=== PATIENT | female | born 1970 | race Caucasian/White ===

== ENCOUNTER → 2016-09-27 | Outpatient (CLI) | payer BC ==
--- NOTE | 2016-09-27 10:57 | REP ---
PA and lateral chest: Comparisons 05/31/2011. The lung mccormick are clear. The cardiac size is normal The adam, mediastinum, and bony thorax are unremarkable. Impression: Negative PA and lateral chest. There is no interval change. Half Signed by Ramon Gamez MD 09/27/2016 10:48 A
== END ==
LOC: M WUC 09:36
PROVIDERS: ATTEND Nurse Practitioner Family
DX: M54.9 Dorsalgia, unspecified (principal)

== ENCOUNTER → 2018-07-03 | Outpatient (REF) | payer BC ==
[2018-07-03 15:31] LABS: INFLUENZA B AMPLIFICATION NEGATIVE (NEGATIVE)
[2018-07-05 09:36] LABS: INFLUENZA A AMPLIFICATION POSITIVE (NEGATIVE)
== END ==
LOC: M LAB REF 14:19
PROVIDERS: ATTEND Physician Assistant Medical
DX: J11.1 Influenza due to unidentified influenza virus with other respiratory manifestations (principal)

== ENCOUNTER 2020-07-04 14:18 | Emergency (ER) | payer BC ==
[~2020-07-04] VITALS: Ht 172.7 cm; Wt 77.2 kg
[2020-07-04 14:19] VITALS: BP 163/92
--- OUTSIDE RECORDS SUMMARY | 2020-07-04 14:24 | CCD | Continuity of Care Document ---
Author Author Maria Del Carmen LINARES Organization Unknown Address [address] [facility] [address] [place] [address] Phone [phone] Care Team Providers Care Electric Relay Tester Name Role Phone Shabana Linares AUTM [phone] Problems Description No Information Available Social History Type Date Description Comments Sex Unknown ETOH Use Rarely consumes alcohol once mon thly Tobacco Use Start: Unknown End: Unknown Patient is a former smoker QUIT 5 YEARS AGO. SMOKED 1/2 PACK DAILY WHEN SMOKING. Quit 04/2011 Allergies, Adverse Reactions, Alerts Description No Known Drug Allergies Medications Active Medications SIG Qnty Indications Ordering Provide r Date Furosemide 20mg Tablets 1 by mouth every day 90tabs R60.9 Devon Sheikh MD 03/16/2020 Medications Administered in Office Medication SIG Qnty Indications Ordering Provider Date Immunization Adminstration,1 Vaccine/Tox oid Injection JOSE ALEJANDRO Borrero 0 Immunizations CPT Code Status Date Vaccine Lot # [id number] Given 03/16/2020 Influenza Vaccin e Quadrivalent Preser/Antibiotic Free Im Use [id number] Vital Signs Date Vital Result Comment 03/16/2020 1:02pm BP Systolic 112 mmHg RT Arm BP Diastolic 66 mmHg RT Arm Heart Rate 68 /min Height 67 inches 5'7" Weight 165.00 lb BMI (Body Mass Index) 25.8 kg/m2 02/15/2019 10:16am BP Systolic 104 mmHg BP Diastolic 70 mmHg Heart Rate 63 /min Height 67 inches 5'7" Weight 152.50 lb O2 % BldC Oximetry 99 % RM Air BMI (Body Mass Index) 23.9 kg/m2 Results Test Acquired Date Facility Test Result H/L Range Note Laboratory test finding 03/16/2020 [facility] Caster Helper: [place] [address] [phone] Vitamin D 25-Hydroxy 50.0 24.0 - 80.0 1 Basic Metabolic Panel 03/16/2020 [facility] Caster Helper: [place] [address] [phone] Glucose 85 mg/dL 74 - 99 2 BUN 14 mg/dL 7 - 18 Creatinine 0.7 mg/dL 0.6 - 1.3 Sodium 142 mEq/L 136 - 145 Potassium 4.2 mEq/L 3.5 - 5.1 Chloride 104 mEq/L 98 - 107 Carbon Dioxide 25 mEq/L 21 - 32 Calcium 8.7 mg/dL 8.5 - 10.1 GFR >= 60 mL/min >60 GFR >= 60 mL/min >60 3 Complete Blood Count 03/16/2020 [facility] Caster Helper: [place] [address] [phone] WBC 9.3 x10*3/UL 4.1 - 10.9 RBC 4.37 x10*6/UL 4.20 - 6.30 Hemoglobin 13.4 g/dL 12.0 - 18.0 Hematocrit 38.8 % 37.0 - 51.0 MCV 88.8 fL 80.0 - 97.0 MCH 30.6 pg 26.0 - 32.0 MCHC 34.5 g/dL 31.0 - 38.0 RDW 12.5 % 11.6 - 13.7 PLT 350 x10*3/UL 140 - 440 MPV 8.5 FL 7.8 - 11.0 Lymph % 31.7 % 10.0 - 58.5 Mid % 8.7 % 1.7 - 9.3 Neut % 59.6 % 37.0 - 92.0 Lymph # 2.9 x10*3/UL 0.6 - 4.1 Mid # 0.9 x10*3/UL High 0.1 - 0.6 Neut # 5.5 x10*3/UL 2.0 - 7.8 1 This test was performed usin gAuto Vitamin D immunoassay kit. Values obtained with different assay methods should not be used interchangeably. 2 100-125 mg/dL PRE-DIABET ES/FASTING >126 mg/dL DIABETES/FASTING 3 CHRONIC KIDNEY DISEASE STAGI NG PER NKF STAGE I & II GFR >= 60 NORMAL TO MILDLY DECREASED STAGE III GFR 30-59 MODERATELY DECREASED STAGE IV GFR 15-29 SEVERELY DECREASED STAGE V GFR <15 VERY LITTLE GFR LEFT ESRD GFR <15 ON VINEYARD SUPERVISOR Procedures Description No Information Available Medical Devices Description No Information Available Encounters Type Date Location Provider Dx Diagnosis Office Visit 03/16/2020 1:00p [facility] HORACIO MichaelP Z00.00 Encntr for general adult medical exam w/ o abnormal findings E55.9 Vitamin D deficiency, unspec ified R60.9 Edema, unspecified E66.3 Overweight Z68.25 Body mass index (BMI) 25.0-2 5.9, adult Z23 Encounter for immunization Z13.89 Encounter for screening for other disorder Assessments Date Code Description Provider 03/16/2020 Z00.00 Encounter for genera l adult medical examination without abnormal findings HORACIO BorreroP 03/16/2020 E55.9 Vitamin D deficiency, unspecifie d Shabana Linares, SINGING WAITER OR WAITRESS 03/16/2020 R60.9 Edema, unspecified Shabana Linares , SINGING WAITER OR WAITRESS 03/16/2020 E66.3 Overweight Shabana Linares, F FORESTRY AID 03/16/2020 Z68.25 Body mass index (BMI) 25.0-25.9, adult Shabana Linares, SINGING WAITER OR WAITRESS 03/16/2020 Z23 Encounter for immunization Bacilio Linares, [facility] 03/16/2020 Z13.89 Encounter for screening for othe r disorder JOSE ALEJANDRO Borrero Plan of Treatment Future Appointment(s):* 03/17/2021 1:00 pm - JOSE ALEJANDRO Borrero at [facility] * 09/14/2020 8:10 am - Lab Schedule at [facility] 03/16/2020 - JOSE ALEJANDRO Borrero* Z00.00 Encounter for general adult medical examination without abnormal findings* Comments:* Healthy, f/u annually, sooner PRN. Sees DELIVERY SPECIALIST tomorrow. * E55.9 Vitamin D deficiency, unspecified* Comments:* D level is pending, not currently supplemented. * R60.9 Edema, unspecified* New Medication:* Furosemide 20 mg - 1 by mouth every day * Comments:* Intermittent but persistent. Check echo. CBC, BMP pending. RX Lasix 20 mg- may take 1/2- 1 tab PO daily PRN for edema. Discussed side effects, need for routine monitoring of BMP if she is taking this regularly. I have recommended increased fluid intake, elevation of BLE when able and compression stockings as well. * Referral:* [facility] * E66.3 Overweight* Comments:* Weight loss would be favorable- portion control, balanced diet and regular exercise are encouraged. * Z68.25 Body mass index (BMI) 25.0-25.9, adult * Z23 Encounter for immunization * Z13.89 Encounter for screening for other disorder * All * Comments:* Follow up in one year with repeat labs at that time.Encouraged balanced diet, 4-5 servings of fresh fruits and vegetables daily. Recommended at least 30 minutes of exercise daily and eight 8 oz. glasses of water daily.SBE monthly.Flu vaccination: given today.RTC PRN for acute illness.COVID precautions are discussed and social distancing/mask use/ frequent hand washing and sanitizing are encouraged. Functional Status Description No Information Available Mental Status Description No Information Available Referrals Refer to Reason for Referral Status Appt Date [facility] CARDIAC ECHO WITH DOPPLER DX : EDEMA NO PRIOR AUTH REQ PER JOANNE AT [facility] Patient Notified 04/21/[id number] [place], [place] [id number] [phone]
--- OUTSIDE RECORDS SUMMARY | 2020-07-04 14:25 | CCD ---
Author Author [facility] Organization [facility] Address Unknown Phone Unavailable Care Team Providers Care Python Programmer Name Role Phone Viri Menjivar MD Unavailable Unavailable Viri Menjivar MD Unavailable Unavailable Viri Menjivar MD Unavailable Unavailable Viri Menjivar MD Unavailable Unavailable Viri Menjivar MD Unavailable Unavailable Viri Menjivar MD Unavailable Unavailable Viri Menjivar MD Unavailable Unavailable Viri Menjivar MD Unavailable Unavailable Viri Menjivar MD Unavailable Unavailable Viri Menjivar MD Unavailable Unavailable Viri Menjivar MD Unavailable Unavailable Viri Menjivar MD Unavailable Unavailable Viri Menjivar MD Unavailable Unavailable Viri Menjivar MD Unavailable Unavailable Viri Menjivar MD Unavailable Unavailable Viri Menjivar MD Unavailable Unavailable Viri Menjivar MD Unavailable Unavailable Viri Menjivar MD Unavailable Unavailable Viri Menjivar MD Unavailable Unavailable Viri Menjivar MD Unavailable Unavailable Viri Menjivar MD Unavailable Unavailable Viri Menjivar MD Unavailable Unavailable Viri Menjivar MD Unavailable Unavailable Viri Menjivar MD Unavailable Unavailable Viri Menjivar MD Unavailable Unavailable Viri Menjivar MD Unavailable Unavailable Viri Menjivar MD Unavailable Unavailable Viri Menjivar MD Unavailable Unavailable Viri Menjivar MD Unavailable Unavailable SleMorenita calvillotech Unavailable Unavailable Viri Menjivar MD Unavailable Unavailable Morenita Menjivartech Unavailable Unavailable Viri Menjivar MD Unavailable Unavailable SleMorenita calvillotech Unavailable Unavailable SleOswaldo calvillojtech Unavailable Unavailable SleOswaldo calvillojtech Unavailable Unavailable SleMorenita calvillotech Unavailable Unavailable Oswaldo Menjivarjtech Unavailable Unavailable Oswaldo Menjivarjtech Unavailable Unavailable Oswaldo Menjivarjtech Unavailable Unavailable Oswaldo Menjivarjtech Unavailable Unavailable Oswaldo Menjivarjtech Unavailable Unavailable Oswaldo Menjivarjtech Unavailable Unavailable Morenita Menjivartech Unavailable Unavailable Morenita Menjivartech Unavailable Unavailable Oswaldo Menjivarjtech Unavailable Unavailable Oswaldo Menjivarjtech Unavailable Unavailable Oswaldo Menjivarjtech Unavailable Unavailable Morenita Menjivartech Unavailable Unavailable Morenita Menjivartech Unavailable Unavailable Viri Menjivar MD Unavailable Unavailable Morenita Menjivartech Unavailable Unavailable Morenita Menjivartech Unavailable Unavailable Oswaldo Menjivarjtech Unavailable Unavailable Viri Menjivar MD Unavailable Unavailable Viri Menjivar MD Unavailable Unavailable Viri Menjivar MD Unavailable Unavailable Vijay, Shabana GLOBAL CEO Unavailable Unavailable Vijay, Shabana GLOBAL CEO Unavailable Unavailable Vijay, Shabana GLOBAL CEO Unavailable Unavailable Vijay, Shabana GLOBAL CEO Unavailable Unavailable Vijay, Shabana GLOBAL CEO Unavailable Unavailable Vijay, Shabana GLOBAL CEO Unavailable Unavailable Vijay, Shabana GLOBAL CEO Unavailable Unavailable Vijay, Shabana GLOBAL CEO Unavailable Unavailable Vijay, Shabana GLOBAL CEO Unavailable Unavailable Vijay, Shabana GLOBAL CEO Unavailable Unavailable Vijay, Shabana GLOBAL CEO Unavailable Unavailable Vijay, Shabana GLOBAL CEO Unavailable Unavailable Vijay, Shabana GLOBAL CEO Unavailable Unavailable Vijay, Shabana GLOBAL CEO Unavailable Unavailable Vijay, Shabana GLOBAL CEO Unavailable Unavailable Vijay, Shabana GLOBAL CEO Unavailable Unavailable Vijay, Shabana GLOBAL CEO Unavailable Unavailable Vijay, Shabana GLOBAL CEO Unavailable Unavailable Vijay, Shabana GLOBAL CEO Unavailable Unavailable Vijay, Shabana GLOBAL CEO Unavailable Unavailable Vijay, Shabana GLOBAL CEO Unavailable Unavailable Vijay, Shabana GLOBAL CEO Unavailable Unavailable Vijay, Shabana GLOBAL CEO Unavailable Unavailable Vijay, Shabana GLOBAL CEO Unavailable Unavailable Vijay, Shabana GLOBAL CEO Unavailable Unavailable Vijay, Shabana GLOBAL CEO Unavailable Unavailable Hill, K Sharon MD Unavailable Unavailable Hill, K Sharon MD Unavailable Unavailable Hill, K Sharon MD Unavailable Unavailable Hill, K Sharon MD Unavailable Unavailable Hill, K Sharon MD Unavailable Unavailable Hill, K Sharon MD Unavailable Unavailable Hill, K Sharon MD Unavailable Unavailable Hill, K Sharon MD Unavailable Unavailable Hill, K Sharon MD Unavailable Unavailable Hill, K Sharon MD Unavailable Unavailable Hill, K Sharon MD Unavailable Unavailable Hill, K Sharon MD Unavailable Unavailable Hill, K Sharon MD Unavailable Unavailable Hill, K Sharon MD Unavailable Unavailable Hill, K Sharon MD Unavailable Unavailable Hill, K Sharon MD Unavailable Unavailable Hill, K Sharon MD Unavailable Unavailable Hill, K Sharon MD Unavailable Unavailable Hill, K Sharon MD Unavailable Unavailable Hill, K Sharon MD Unavailable Unavailable Hill, K Sharon MD Unavailable Unavailable Hill, K Sharon MD Unavailable Unavailable Hill, K Sharon MD Unavailable Unavailable Hill, K Sharon MD Unavailable Unavailable Hill, K Sharon MD Unavailable Unavailable Hill, K Sharon MD Unavailable Unavailable Hill, K Sharon MD Unavailable Unavailable Re-disclosure Warning The records that you are about to access may contain information from federally-assisted alcohol or drug abuse programs. If such information is present, then the following federally mandated warning applies: This information has been disclosed to you from records protected by federal confidentiality rules (42 CFR part 2). The federal rules prohibit you from making any further disclosure of this information unless further disclosure is expressly permitted by the written consent of the person to whom it pertains or as otherwise permitted by 42 CFR part 2. A general authorization for the release of medical or other information is NOT sufficient for this purpose. The Federal rules restrict any use of the information to criminally investigate or prosecute any alcohol or drug abuse patient.The records that you are about to access may contain highly sensitive health information, the redisclosure of which is protected by Article 27-F of the [facility] Public Health law. If you continue you may have access to information: Regarding HIV / AIDS; Provided by facilities licensed or operated by the [facility] Office of Mental Health; or Provided by the [facility] Office for People With Developmental Disabilities. If such information is present, then the following [facility] mandated warning applies: This information has been disclosed to you from confidential records which are protected by state law. State law prohibits you from making any further disclosure of this information without the specific written consent of the person to whom it pertains, or as otherwise permitted by law. Any unauthorized further disclosure in violation of state law may result in a fine or residential sentence or both. A general authorization for the release of medical or other information is NOT sufficient authorization for further disc losure. Family History Family Member Name Family Member Gender Family Member Status Date o f Status Description Data Source(s) Unknown Unknown Problem [facility] ([facility]) Unknown Male Problem [facility] ([facility] ) Encounters Encounter Providers Location Date Indications Data Source(s ) Outpatient [facility] 04/22/2020 05:46:19 PM [facility] Outpatient Referrer: Viri AGUIRRE 08/2019 12:00:00 AM EST [facility] Recurring Patient Referrer: Sharon Hilario MD 03/17/2020 04:07: 54 PM EDT [facility] Outpatient Attender: Shabana Griffin 01:00:00 PM EDT [facility] ([facility] ) [facility] [address] [place] [phone] 02/03/2020 12:00:00 AM EDT eCW1 ([facility]) Immunizations Vaccine Date Status Description Data Source(s) Influenza, injectable, MDCK, preservative free, daniel valent 03/16/2020 01:05:00 PM EDT completed [facility] ([facility]) FLU VACCINE QUADRIV [id number](4 YEARS AND OLDER)CELL D ERIVED 07/25/2019 12:00:00 AM EST completed [facility] Medications Medication Brand Name Start Date Product Form Dose Route Admi nistrative Instructions Pharmacy Instructions Status Indications Reaction Description Data Source(s) 20 mg 03/17/2020 12:00:00 AM EDT tablet 90 TAKE ONE TABLET BY MOUTH EVERY DAY TAKE ONE TABLET BY MOUTH EVERY DAY SOLD: 03/30/2020 [facility] Furosemide 20 MG Oral Tablet Furosemide 03/16/2020 12:00:00 AM EDT ORAL active [facility] ([facility]) Immunization Adminstration,1 Vaccine/Toxoid 03/16/2020 12:00 :00 AM EDT completed [facility] ([facility]) Medication administered onsite Insurance Providers Payer name Policy type / Coverage type Policy ID Covered alliance party ID Covered alliance party's relationship to rivas Policy Rivas Plan Information BCBS FEDERAL EMPLOYEE PROGRAM [id number] SP [id number] EXCELLUS BCBS [id number] Mira [id number] [id number] 18 [id number] Federal BC/BS Commercial [id number] Self [id number] BCBS FEDERAL EMPLOYEE PROGRAM [id number] SP [id number] [place] PC UNAVAILABLE 18 UNAVAILABLE BS Fed Plan Medigap Part B [id number] Self [id number] BS [place] Commercial [id number] Self [id number] BS Fed Plan Medigap Part B [id number] Self [id number] BS Fed Plan Medigap Part B [id number] Self [id number] BC BS [place] FEDERAL B [id number] S [id number] EXCELLUS BCBS FEDERAL [id number] SP [id number] BS Fed Plan Medigap Part B [id number] Self [id number] BLUE CROSS O [id number] S [id number] BLUE CROSS O [id number] S [id number] BC BS [place] WATN FEDERAL [id number] SP [id number] BLUE CROSS BLUE SHIELD-O/P [id number] 18 [id number] P UNAVAILABLE UNAVAILA BLE Results ID Date Data Source [id number] 04/22/2020 05:41:49 PM EST [facility] Name Value Range Interpretation Code Description Data Elly rce(s) Supporting Document(s) &PDF [facility] ORVQCg9iQcAFZfMx54/VZIsxOOXgj1MeBFdhGUv4HCouZSKvH0AsrUnnYC3KWNnBFUlOBNGYXSUNKK4z oRX [file] 6z+ZG6zGoHu3lungyiw6EsdGwgZ9+KNmMSCQuV 2KlLeGmEUPq+S2ZHAjJdhmyLYfMvTTKIFNB6vJBw39Rc5uqiNjifS04lZnawOHqq0l/XTl1p3rE5vJ8K iRN9/WKg7DG7x4d8Jbf2bznOPkZ7j53uJ/snLQytXNvTEUN1+oTAN/p0aE8JPM0ka526u9Zx6RPz+30f UrUVp3OnVLN9/wN625Y8GBnbCa6ICV5BGJbg7gyXkp XNz2cAwe9JaS+F0TImgTg/QmOdKann6+SsF2bMyTc47tYlM7rzp3x3GWt7bW1QUEY6jTY1/5sxaw0eW5 marisol+O57nNqw6fxle5/vDDDz/G277LoOkedTLKeA/oi0rl049Wna1pVBK63VCMjcmy2+bpmVv1aqz7PtT8 [file] [id number] ID Date Data Source [id number] 03/17/2020 04:06:23 PM EDT [facility] PROFESSIONAL INTERPRETATION PERFORMED BY :[facility]:PROFESSIONAL INTERPRETATION FOR: [facility]WAINE PATRICK M.D. P.C.EXAMINATION: BILATERAL SCREENING 2D-3D MAMMOGRAMIndication: ScreeningLast clinical breast exam: 03/17/20TECHNIQUE: Routine craniocaudal and mediolateral oblique views of each breast are obtained withdigital technique. Interpretation is aided by R2 CAD.BREAST CANCER RISK ASSESSMENT5 Year Risk (at current age): 0.9 %Lifetime Risk (to age 90):9.5 %FINDINGS:ACR density category: DComparison is made to prior studies. The breasts are composed of extremely dense fibroglandular elements, which limits the sensitivity of mammography. No dominant masses, worrisome clusters ofmicrocalcifications, or areas of architectural distortion are demonstrated. No significant changefrom the prior study.IMPRESSION1. Negative mammogram. The patient may continue routine annual screening mammography.2. This patient has dense breast tissue and must be informed. Bilateral breast ultrasound candetect mammographically occult cancers in this setting and can be arranged as clinically helpful.BI-RADS: 1 Negative Exam. Name Value Range Interpretation Code Description Data Elly rce(s) Supporting Document(s) ID Date Data Source [id number] 03/16/2020 12:53:00 PM EDT [facility] Name Value Range Interpretation Code Description Data Elly rce(s) Supporting Document(s) Calcidiol [Mass/volume] in Serum or Plasma 50.0 24.0-80.0 [facility] ([facility]) This test was performed using FastPack I P Vitamin D immunoassay kit. Values obtained with different assay methods should not be used interchangeably. ID Date Data Source [id number] 03/16/2020 12:52:00 PM EDT [facility] Name Value Range Interpretation Code Description Data Elly rce(s) Supporting Document(s) Leukocytes [#/volume] in Blood by Automated count 9.3 x10*3/UL 4.1-10 .9 [facility] ([facility]) Erythrocytes [#/volume] in Blood by Automated count 4.37 x10*6/UL 4.2 0-6.30 [facility] ([facility]) Hemoglobin [Mass/volume] in Blood 13.4 g/dL 12.0-18.0 [facility] ([facility]) MCV 88.8 fL 80.0-97.0 [facility] Hematocrit [Volume Fraction] of Blood by Automated count 38.8 % 3 7.0-51.0 [facility] ([facility]) MCH 30.6 pg 26.0-32.0 [facility] ([facility]) Erythrocyte distribution width [Ratio] by Automated count 12.5 % 11.6-13.7 [facility] ([facility]) MCHC 34.5 g/dL 31.0-38.0 [facility] Lymph % 31.7 % 10.0-58.5 [facility]) MPV 8.5 FL 7.8-11.0 [facility]) Platelets [#/volume] in Blood by Automated count 350 x10*3/UL 140-440 [facility] ([facility]) Lymph # 2.9 x10*3/UL 0.6-4.1 [facility] ([facility]) Mid # 0.9 x10*3/UL 0.1-0.6 [facility] ([facility]) Neut % 59.6 % 37.0-92.0 [facility] Mid % 8.7 % 1.7-9.3 [facility] Neut # 5.5 x10*3/UL 2.0-7.8 [facility] ([facility]) ID Date Data Source [id number] 03/16/2020 12:52:00 PM EDT [facility] ([facility]) Name Value Range Interpretation Code Description Data Elly rce(s) Supporting Document(s) Glucose [Mass/volume] in Serum or Plasma 85 mg/dL 74-99 [facility] ([facility]) 100-125 mg/dL PRE-DIABETES/FASTING >126 mg/dL DIABETES/FASTING Urea nitrogen [Mass/volume] in Serum or Plasma 14 mg/dL 7-18 [facility] ([facility]) Sodium [Moles/volume] in Serum or Plasma 142 meq/L 136-145 [facility] ([facility]) Creatinine 0.7 mg/dL 0.6-1.3 [facility] ([facility]) Potassium [Moles/volume] in Serum or Plasma 4.2 meq/L 3.5-5.1 [facility] ([facility]) Chloride [Moles/volume] in Serum or Plasma 104 meq/L 98-107 [facility] ([facility]) Carbon dioxide, total [Moles/volume] in Serum or Plasma 25 meq/L 21 -32 [facility] ([facility]) Glomerular filtration rate/1.73 sq M pre dicted among blacks [Volume Rate/Area] in Serum or Plasma by Creatinine-based formula (MDRD) Laboratory test result [facility] <content>CHRONIC KIDNEY DISEASE STAGING PER NKF</content>
<content></content>
<content>STAGE I & II GFR >= 60 NORMAL TO MILDLY DECREASED</content>
<content>STAGE III GFR 30-59 MODERATELY DECREASED</content>
<content>STAGE IV GFR 15-29 SEVERELY DECREASED</content>
<content>STAGE V GFR <15 VERY LITTLE GFR LEFT</content>
<content>ESRD GFR <15 ON BISCUIT MACHINE OPERATOR</content>
<content></content> Glomerular filtration rate/1.73 sq M pre dicted among non-blacks [Volume Rate/Area] in Serum or Plasma by Creatinine-based formula (MDRD) Laboratory test result [facility] ([facility] ) Calcium [Mass/volume] in Serum or Plasma 8.7 mg/dL 8.5-10.1 [facility] ([facility]) Procedure Vital Signs ID Date Data Source [id number] Name Value Range Interpretation Code Description Data Source(s) Body mass index (BMI) [Ratio] 25.8 kg/m2 25.8 k g/m2 [facility] ([facility]) Body weight 165.00 [lb_av] 165.00 [facility]_av] [facility] Body height 67 [in_i] 67 [in_i] [facility] ([facility]) 5'7" Heart rate 68 /min 68 /min [facility] ([facility]) Diastolic blood pressure 66 mm[Hg] 66 mm[Hg] [facility] ([facility]) RT Arm Systolic blood pressure 112 mm[Hg] 112 mm[Hg] M EDANDRA ([facility]) RT Arm
[2020-07-04] MEDS ORDERED: BOOSTRIX/ADACEL VACCINE (DIPHTH/PERTUSS/ACELL/TETANUS) 0.5ML SYR IM ONE (14:45)
[2020-07-04] MEDS ORDERED: AUGM875T28 PO (14:45)
--- OUTSIDE RECORDS SUMMARY | 2020-07-04 14:55 | CCD ---
Author Author [facility] Organization [facility] Address Unknown Phone Unavailable Care Team Providers Care Nursery Attendant Name Role Phone Viri Menjivar MD Unavailable [...] MD Unavailable Unavailable SleMorenita [employer] Unavailable Unavailable SleViri calvillo MD Unavailable Unavailable Morenita Menjivartech Unavailable Unavailable Morenita Menjivartech Unavailable Unavailable Viri Menjivar MD Unavailable Unavailable Morenita Menjivartech Unavailable Unavailable Viri Menjivar MD Unavailable Unavailable Oswaldo Menjivarjtech Unavailable Unavailable Oswaldo Menjivarjtech Unavailable Unavailable Morenita Menjivartech Unavailable Unavailable Viri Menjivar MD Unavailable Unavailable Viri Menjivar MD Unavailable Unavailable Viri Menjivar MD Unavailable Unavailable Oswaldo Menjivarjtech Unavailable Unavailable Oswaldo Menjivarjtech Unavailable Unavailable Viri Menjivar MD Unavailable Unavailable Viri Menjivar MD Unavailable Unavailable Viri Menjivar MD Unavailable Unavailable Viri Menjivar MD Unavailable Unavailable Viri Menjivar MD Unavailable Unavailable Morenita Menjivartech Unavailable Unavailable Viri Menjivar MD Unavailable Unavailable Viri Menjivar MD Unavailable Unavailable Viri Menjivar MD Unavailable Unavailable Viri Menjivar MD Unavailable Unavailable Viri Menjivar MD Unavailable Unavailable Vijay, Shabana SALES SUPPORT MANAGER Unavailable Unavailable Vijay, Shabana SALES SUPPORT MANAGER Unavailable Unavailable Vijay, Shabana SALES SUPPORT MANAGER Unavailable Unavailable Vijay, Shabana SALES SUPPORT MANAGER Unavailable Unavailable Vijay, Shabana SALES SUPPORT MANAGER Unavailable Unavailable Vijay, Shabana SALES SUPPORT MANAGER Unavailable Unavailable Vijay, Shabana SALES SUPPORT MANAGER Unavailable Unavailable Vijay, Shabana SALES SUPPORT MANAGER Unavailable Unavailable Vijay, Shabana SALES SUPPORT MANAGER Unavailable Unavailable Vijay, Shabana SALES SUPPORT MANAGER Unavailable Unavailable Vijay, Shabana SALES SUPPORT MANAGER Unavailable Unavailable Vijay, Shabana SALES SUPPORT MANAGER Unavailable Unavailable Vijay, Shabana SALES SUPPORT MANAGER Unavailable Unavailable Vijay, Shabana SALES SUPPORT MANAGER Unavailable Unavailable Vijay, Shabana SALES SUPPORT MANAGER Unavailable Unavailable Vijay, Shabana SALES SUPPORT MANAGER Unavailable Unavailable Vijay, Shabana SALES SUPPORT MANAGER Unavailable Unavailable Vijay, Shabana SALES SUPPORT MANAGER Unavailable Unavailable Vijay, Shabana SALES SUPPORT MANAGER Unavailable Unavailable Vijay, Shabana SALES SUPPORT MANAGER Unavailable Unavailable Vijay, Shabana SALES SUPPORT MANAGER Unavailable Unavailable Vijay, Shabana SALES SUPPORT MANAGER Unavailable Unavailable Vijay, Shabana SALES SUPPORT MANAGER Unavailable Unavailable Vijay, Shabana SALES SUPPORT MANAGER Unavailable Unavailable Vijay, Shabana SALES SUPPORT MANAGER Unavailable Unavailable Vijay, Shabana SALES SUPPORT MANAGER Unavailable Unavailable Hill, K Sharon MD Unavailable [...] is protected by Article 27-F of the [facility] Public Health law. If you continue you may have access to information: Regarding HIV / AIDS; Provided by facilities licensed or operated by the [facility] Office of Mental Health; or Provided by the [facility] Office for People With Developmental Disabilities. If such information is present, then the following [facility] mandated warning applies: This information [...] law may result in a fine or senior care sentence or both. A general authorization for the release of medical or other information is NOT sufficient authorization for further disc losure. Family History Family Member Name Family Member Gender Family Member Status Date o f Status Description Data Source(s) Unknown Unknown Problem [facility]) Unknown Male Problem [facility] ([facility] ) Encounters Encounter Providers Location Date Indications Data Source(s ) Outpatient LUIS [email or web address].KAMAR 04/22/2020 05:46:19 PM [facility] Outpatient Referrer: Viri AGUIRRE 08/2019 12:00:00 AM [facility] Recurring Patient Referrer: Sharon Hilario MD 03/17/2020 04:07: 54 PM EDT [facility] Outpatient Attender: Shabana Griffin 01:00:00 PM EDT [facility] ([facility] ) [facility] [address] [place] [phone] 02/03/2020 12:00:00 AM EDT eCW1 ([facility]) Immunizations Vaccine Date Status Description Data Source(s) Influenza, injectable, MDCK, preservative free, daniel valent 03/16/2020 01:05:00 PM EDT completed [facility] ([facility]) FLU VACCINE QUADRIV [id number](4 YEARS AND OLDER)CELL D ERIVED 07/25/2019 12:00:00 [...] 03/16/2020 12:00:00 AM EDT ORAL active [facility] ([facility]) Immunization Adminstration,1 Vaccine/Toxoid 03/16/2020 12:00 :00 AM EDT completed [facility] ([facility]) Medication administered onsite Insurance Providers Payer name Policy type / Coverage type Policy ID Covered democrat ID Covered democrat's relationship to rivas Policy Rivas Plan Information BCBS FEDERAL EMPLOYEE PROGRAM [id number] SP [id number] [place]CELL[place] BCBS [id number] Mira [id number] [id number] 18 [id number] Federal BC/BS Commercial [id number] Self [id number] BCBS FEDERAL EMPLOYEE PROGRAM [id number] SP [id number] [place] UNAVAILABLE 18 UNAVAILABLE BS Fed Plan Medigap Part B [id number] Self [id number] BS [place] Commercial [id number] Self [id number] BS Fed Plan Medigap Part B [id number] Self [id number] BS Fed Plan Medigap Part B [id number] Self [id number] BC BS [place] FEDERAL B [id number] S [id number] EXCELLUS BCBS FEDERAL [id number] SP [id number] BS Fed Plan Medigap Part B [id number] Self [id number] BLUE CROSS O [id number] S [id number] BLUE CROSS O [id number] S [id number] BC BS [place]AT[place] FEDERAL [id number] SP [id number] BLUE CROSS BLUE SHIELD-O/P [id number] 18 [id number] P UNAVAILABLE UNAVAILA BLE Results ID Date Data Source [id number] 04/22/2020 05:41:49 PM EST [facility] Name Value Range Interpretation Code Description Data Elly rce(s) Supporting Document(s) &PDF [facility] PPHUNp9iJxFFMgVz58/VDHftOROpi9NaQDbkKQg0FAnjHRFbM8LoiSrgMU2MCQaKJBjSZYMKALANLM2b oRX [file] 6z+ZU6uPjIf0vtrgxzy3EsvKxnJ4+KNmMSCQuV 2KlLeGmEUPq+Q0SGRjStqhnHFgQjVHASRTY9jUHr94Zh9nekAsrlL63iDuffUQgz8a/BRb8s4bO7uK6N iRN9/TNo3XY5h9q7Yho5eanXLlL8i29xE/snLQytXNvTEUN1+oTAN/x5bJ0ALN6dg927m9Tv4SZz+30f LyCKk5KeUZH2/bR034E7VTpbUv5CTV0KOMrh8fxPih ZQz5oYlp4ArR+T8KHxhZw/QmOdKann6+AcL5tCwAq45nArY9psw2k9QRp8uQ1XKRT3lOK8/6rwdl7aM8 marisol+D97bVfb6yyfq0/vDDDz/W000JdHdouRBLkX/ad0vq083Cpr7oMBW58NMAsrkd8+iggYs8gsd8TiJ1 [file] [id number] ID Date Data Source [id number] 03/17/2020 04:06:23 PM EDT [facility] PROFESSIONAL INTERPRETATION PERFORMED BY :CHRISTIANO [...] rce(s) Supporting Document(s) ID Date Data Source [id number] 03/16/2020 12:53:00 PM EDT [facility] Name Value Range Interpretation Code Description Data Elly rce(s) Supporting Document(s) Calcidiol [Mass/volume] in Serum or Plasma 50.0 24.0-80.0 [facility] ([facility]) This test was performed using FastPack I P Vitamin D immunoassay kit. Values obtained with different assay methods should not be used interchangeably. ID Date Data Source [id number] 03/16/2020 12:52:00 PM EDT [facility] Name Value Range Interpretation Code Description Data Elly rce(s) Supporting Document(s) Leukocytes [#/volume] in Blood by Automated count 9.3 x10*3/UL 4.1-10 .9 [facility] ([facility]) Erythrocytes [#/volume] in Blood by Automated count 4.37 x10*6/UL 4.2 0-6.30 [facility] ([facility]) Hemoglobin [Mass/volume] in Blood 13.4 g/dL 12.0-18.0 [facility] ([facility]) MCV 88.8 fL 80.0-97.0 [facility] ([facility]) Hematocrit [Volume Fraction] of Blood by Automated count 38.8 % 3 7.0-51.0 [facility] ([facility]) MCH 30.6 pg 26.0-32.0 [facility] ([facility]) Erythrocyte distribution width [Ratio] by Automated count 12.5 % 11.6-13.7 [facility] ([facility]) MCHC 34.5 g/dL 31.0-38.0 [facility] ([facility]) Lymph % 31.7 % 10.0-58.5 [facility] ([facility]) MPV 8.5 FL 7.8-11.0 [facility] ([facility]) Platelets [#/volume] in Blood by Automated count 350 x10*3/UL 140-440 [facility] ([facility]) Lymph # 2.9 x10*3/UL 0.6-4.1 [facility] ([facility]) Mid # 0.9 x10*3/UL 0.1-0.6 [facility] ([facility]) Neut % 59.6 % 37.0-92.0 [facility] ([facility]) Mid % 8.7 % 1.7-9.3 [facility] ([facility]) Neut # 5.5 x10*3/UL 2.0-7.8 [facility] ([facility]) ID Date Data Source [id number] 03/16/2020 12:52:00 PM EDT [facility] ([facility]) Name Value Range Interpretation Code Description Data Elly rce(s) Supporting Document(s) Glucose [Mass/volume] in Serum or Plasma 85 mg/dL 74-99 [facility] ([facility]) 100-125 mg/dL PRE-DIABETES/FASTING >126 mg/dL DIABETES/FASTING Urea nitrogen [Mass/volume] in Serum or Plasma 14 mg/dL 7-18 [facility] ([facility]) Sodium [Moles/volume] in Serum or Plasma 142 meq/L 136-145 [facility] ([facility]) Creatinine 0.7 mg/dL 0.6-1.3 [facility] ([facility]) Potassium [Moles/volume] in Serum or Plasma 4.2 meq/L 3.5-5.1 [facility] ([facility]) Chloride [Moles/volume] in Serum or Plasma 104 meq/L 98-107 [facility] ([facility]) Carbon dioxide, total [Moles/volume] in Serum or Plasma 25 meq/L 21 -32 [facility] ([facility]) Glomerular filtration rate/1.73 sq M pre dicted among blacks [Volume Rate/Area] in Serum or Plasma by Creatinine-based formula (MDRD) Laboratory test result [facility] ([facility]) <content>CHRONIC KIDNEY DISEASE STAGING PER NKF</content>
<content></content>
<content>STAGE I & II GFR >= 60 NORMAL TO MILDLY DECREASED</content>
<content>STAGE III GFR 30-59 MODERATELY DECREASED</content>
<content>STAGE IV GFR 15-29 SEVERELY DECREASED</content>
<content>STAGE V GFR <15 VERY LITTLE GFR LEFT</content>
<content>ESRD GFR <15 ON HEEL SLICKER</content>
<content></content> Glomerular filtration rate/1.73 sq M pre dicted among non-blacks [Volume Rate/Area] in Serum or Plasma by Creatinine-based formula (MDRD) Laboratory test result [facility] ([facility] ) Calcium [Mass/volume] in Serum or Plasma 8.7 mg/dL 8.5-10.1 [facility] ([facility]) Procedure Vital Signs ID Date Data Source UNK Name Value Range Interpretation Code Description Data Source(s) Body mass index (BMI) [Ratio] 25.8 kg/m2 25.8 k g/m2 [facility] ([facility]) Body weight 165.00 [lb_av] 165.00 [lb_av] [facility] T ([facility]) Body height 67 [in_i] 67 [in_i] [facility] ([facility]) 5'7" Heart rate 68 /min 68 /min [facility] ([facility]) Diastolic blood pressure 66 mm[Hg] 66 mm[Hg] [facility] ([facility]) RT Arm Systolic blood pressure 112 mm[Hg] 112 mm[Hg] M [facility] ([facility]) RT Arm
== END 2020-07-04 14:58 | disposition home or self-care (01) ==
LOC: M ED 14:18
DX: S61.251A Open bite of left index finger without damage to nail, initial encounter (principal); W54.0XXA Bitten by dog, initial encounter; Y92.9 Unspecified place or not applicable; Y93.9 Activity, unspecified; Y99.9 Unspecified external cause status

== ENCOUNTER → 2022-03-21 | Outpatient (CLI) | payer BC ==
[~2022-03-21] MED LIST: AUGM875T28 PO
== END ==
LOC: M WUC 14:23
PROVIDERS: ATTEND Registered Nurse
DX: M25.512 Pain in left shoulder (principal); M25.551 Pain in right hip

== ENCOUNTER → 2022-04-11 | Outpatient (CLI) | payer BC | LOC: M PLAIMG 12:18 | PROVIDERS: ATTEND Registered Nurse | DX: M25.512 Pain in left shoulder (principal); M75.32 Calcific tendinitis of left shoulder ==

== ENCOUNTER → 2025-06-17 | Outpatient (CLI) | payer BC | LOC: M WUC 14:54 | PROVIDERS: ATTEND Physician Assistant Medical | DX: R05.9 Cough, unspecified (principal) ==